=== PATIENT | male | born 2005 | race Two or more races ===

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

== ENCOUNTER 2024-01-18 18:49 | Emergency (ER) | payer MEDICAID ==
[~2024-01-18] VITALS: Ht 180.3 cm; Wt 65.8 kg
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
--- NOTE | 2024-01-18 20:25 | DVH ---
EXAM: CT HEAD WITHOUT CONTRAST HISTORY: head injury COMPARISON: CERVICAL WITHOUT CONTRAST on DOS: 11/24/19, HEAD WITHOUT CONTRAST on DOS: 11/24/19 TECHNIQUE: Axial images were obtained and reformatted in coronal and sagittal planes. All CT scans at this medical facility are performed using dose modulation techniques as appropriate t o a performed exam including the following: Automated exposure control was utilized; adjustment of th e MA and/or KV according to patient size; and use of iterative reconstruction technique. CT Dose: CTDI volume is 56.24 mGy. Dose-length product is 1126.53 mGy*cm FINDINGS: Supratentorial Region: No evidence for large acute territorial ischemia. No intracranial hemorrhage is noted. Posterior Fossa: No acute abnormality. Brainstem: Unremarkable. Sellar/Suprasellar Region: Unremarkable. Ventricles, Cisterns, Sulci: Age-appropriate. Orbits: Unremarkable. Paranasal Sinuses: Near-complete opacification of the bilateral maxillary sinuses. Small amount of f luid in the left maxillary sinus noted. Left sphenoid, ethmoid and left frontal sinus mucosal thicken ing. Mastoid Air Cells: Unremarkable. Vasculature: Unremarkable. Bones/Soft Tissues: No acute abnormality. Other: None. IMPRESSION: 1. No acute intracranial process. 2. Severe acute on chronic paranasal sinusitis.
--- NOTE | 2024-01-18 20:34 | DVH ---
CLINICAL INDICATION: left ankle pain, left foot pain TECHNIQUE: XY L ANKLE 3 VIEW, XY L FOOT 3 VIEW XRAY Comparison: None FINDINGS/IMPRESSION: There is no evidence of acute fracture or dislocation in the left ankle or left foot. The visualized joint space is well maintained. The alignment is anatomical. Small radiopaque densities at the level of the left forefoot and 2nd through 4th digits which could b e in the skin or overlying the patient. Correlate with clinical exam in this location.
[2024-01-18] MEDS ORDERED: IBUP-1456 PO (20:43)
[2024-01-18] MEDS ORDERED: AMOX875T4 PO (20:43)
[2024-01-18 20:50] VITALS: BP 141/86; PULSE 100; RESP 14; TEMP 98.6; O2SAT 98
== END 2024-01-18 20:58 | disposition home or self-care (01) ==
LOC: ER 18:49
DX: S93.492A Sprain of other ligament of left ankle, initial encounter (principal); S90.32XA Contusion of left foot, initial encounter; S09.8XXA Other specified injuries of head, initial encounter; J32.9 Chronic sinusitis, unspecified; F17.290 Nicotine dependence, other tobacco product, uncomplicated; Z79.899 Other long term (current) drug therapy; W18.09XA Striking against other object with subsequent fall, initial encounter; Y93.89 Activity, other specified; Y92.481 Parking lot as the place of occurrence of the external cause; Y99.8 Other external cause status
CPT/HCPCS: 70450; 73610; 73630